=== PATIENT | female | born 1955 | race Caucasian/White ===

== ENCOUNTER 2020-05-22 01:14 | Outpatient (CLI) | payer MEDICARE, SELFPAY ==
[2020-05-22 20:15] LABS: SARS-CoV-2 RNA PCR Negative
== END 2020-05-22 01:15 | disposition home or self-care (01) ==
LOC: ANHCOVIDDT 01:14
PROVIDERS: PCP Internal Medicine Infectious Disease; Visit Provider Internal Medicine Gastroenterology
DX: Z01.812 Encounter for preprocedural laboratory examination (principal); Z11.59 Encounter for screening for other viral diseases
CPT/HCPCS: 87635; C9803; U0003

== ENCOUNTER 2020-05-25 01:38 | Day surgery (SDC) | payer MEDICARE, SELFPAY ==
[2020-05-19 11:14] VITALS: BMI 22.4
[2020-05-25 06:42] VITALS: BP 171/73; PULSE 86; RESP 16; TEMP 36.7; O2SAT 98
[2020-05-25] MEDS: LACTATED RINGERS 1,000 ML 150 ML IV CONT (06:49)
--- NOTE | 2020-05-25 07:08 | WPDANESEPPF ---
Anes - Initial Pre Proc Eval Procedure: Operation Date: 05/25/20 08:00 Proposed Procedures p Screening Colonoscopy - Juan Best MD Date/Time: 05/25/20 07:08 Surgeon: Juan Best MD Pre Op Diagnosis: Neoplasm Screening Patient Data Age: 65 Gender: F Height: 5 ft 2 in Weight: 54.5 kg Last Vital Signs Temp 36.7 C 05/25/20 06:42 Pulse 86 05/25/20 06:42 Resp 16 05/25/20 06:42 BP 171/73 H 05/25/20 06:42 Pulse Ox 98 05/25/20 06:42 Allergies Allergy/AdvReac Type Severity Reaction Status Date / Time codeine Allergy Mild Nausea and Unverified 05/25/20 06:40 Vomiting Home Medications Medication Instructions Recorded Confirmed Type fluticasone propionate 2 spray INTRANASAL BID 05/19/20 05/19/20 History hydrochlorothiazide 25 mg PO DAILY 05/19/20 05/25/20 History Patient hx anesthesia problems: none Family hx anesthesia problems: none [facility] Past Medical History Medical History (Updated 05/25/20 @ 07:11 by Ton Cueva MD) HTN (hypertension) Hyperlipidemia Social History Social History Smoking packs per day: 1.5 Smoking cigarettes per day: 30.0 Smoking status: Former smoker Tobacco type: cigarettes Alcohol intake: current Drinks per week: 15 Substance use: former Substance use type: marijuana and crack/cocaine Living arrangements: with family Spiritual care concerns: No Anes - Eval Final PreProcedure Day of Procedure 05/25/20 07:08 Patient weight: normal Heart: regular rate and rhythm Lungs: clear to auscultation Airway: Mallampati scale class II Neurological: alert and oriented Last oral intake: >/= 8 hours ASA classification: III Emergent: no Anesthetic plan: proceed Anesthesia type and monitoring: general GIVS and standard monitoring Informed Consent: The patient's anesthetic plan and its attendant risks and benefits were discussed with the patient/family/POA. Questions were solicited and answers provided to the satisfaction of the patient/family/POA.
--- NOTE | 2020-05-25 07:48 | WPDGICN ---
Assessment and Plan Assessment and plan (1) Encounter for screening colonoscopy: Code(s): Z12.11 - Encounter for screening for malignant neoplasm of colon Status: Acute Assessment and Plan: Patient presents for screening colonoscopy is been at least 10 years since last exam. She has no specific symptoms. Appears to be at average risk for colon polyps. Colonoscopy report follow separately. GI Consult Note Consult date/time: 05/25/20 07:48 HPI: Ambar Sears is a 65 year old female Seen in evaluation at the request of Dr Benavides. patient presents for screening colonoscopy. Patient's current weight appetite bowel movements are normal. Patient denies abdominal pain. He has had no bleeding. Family history is noncontributory. [facility] Past Medical History Medical History (Updated 05/25/20 @ 07:49 by Juan Best MD) HTN (hypertension) Hyperlipidemia Social History Social History Smoking packs per day: 1.5 Smoking cigarettes per day: 30.0 Smoking status: Former smoker Tobacco type: cigarettes Alcohol intake: current Drinks per week: 15 Substance use: former Substance use type: marijuana and crack/cocaine Living arrangements: with family Spiritual care concerns: No Meds Home Medications and Allergies Home Medications Medication Instructions Recorded Confirmed Type fluticasone propionate 2 spray INTRANASAL BID 05/19/20 05/19/20 History hydrochlorothiazide 25 mg PO DAILY 05/19/20 05/25/20 History Allergies Allergy/AdvReac Type Severity Reaction Status Date / Time codeine Allergy Mild Nausea and Unverified 05/25/20 06:40 Vomiting Vital Signs Vital Signs - 24 hr 05/25/20 06:42 Temperature 98.0 F Pulse Rate 86 Respiratory Rate 16 Blood Pressure 171/73 H Pulse Oximetry 98 Exam Narrative: Exam Narrative: Physical exam reveals patient to be alert. Vital signs stable. HEENT exam unremarkable. Lungs are clear to auscultation and percussion. Heart is without murmur or extra sounds. Abdominal exam bowel sounds are present soft nontender with no organomegaly. Digital external rectal exam is normal.
[2020-05-25 08:14] VITALS: BP 132/68; PULSE 83; RESP 18; O2SAT 100
[2020-05-25 08:23] VITALS: BP 128/111; PULSE 88; RESP 22; O2SAT 100
[2020-05-25 08:34] VITALS: BP 158/96; PULSE 82; RESP 16; O2SAT 100
== END 2020-05-25 08:57 | disposition home or self-care (01) ==
PROVIDERS: PCP Internal Medicine Infectious Disease; Visit Provider Internal Medicine Gastroenterology
PROC: 0DJD8ZZ Inspection of Lower Intestinal Tract, Via Natural or Artificial Opening Endoscopic (ICD-10-PCS; CPT 45378; principal; 2020-05-25 08:00)
DX: Z12.11 Encounter for screening for malignant neoplasm of colon (principal); E78.5 Hyperlipidemia, unspecified; I10 Essential (primary) hypertension; Z87.891 Personal history of nicotine dependence; F12.10 Cannabis abuse, uncomplicated
CPT/HCPCS: G0121; J2704; J7120

== ENCOUNTER 2020-05-26 07:35 | Outpatient (CLI) | payer MEDICARE, SELFPAY ==
--- NOTE | ~2020-05-26 | CT_ITS ---
EXAMINATION: CT lung screening DATE: 05/26/2020 08:31 INDICATION: History of tobacco dependence. Lung cancer screening. TECHNIQUE: Computed tomography (CT) of the chest was performed without intravenous contrast. The dose -length product was 58.59 mGy-cm. Automated exposure control and iterative reconstruction technique w ere employed. COMPARISON: Chest x-ray dated 12/06/2005 FINDINGS: Mild atherosclerosis. No significant pleural or pericardial effusion. There are calcified m ediastinal and hilar lymph nodes as well as right lower lobe parenchymal nodule consistent with chron ic granulomatous disease. No thoracic lymphadenopathy. Calcifications of the pancreas are consistent with chronic pancreatitis. There is emphysema. 2 mm left upper lobe nodule, image 43. No endobronchial lesion. Mild thoracic spo ndylosis. No acute osseous abnormality. IMPRESSION: 1. Lung-RADS category 2: Benign appearance or behavior. Continue annual screening with noncontrast lo w-dose chest CT in 12 months. Reviewed, dictated and finalized at location A. R BEAM MACHINE OPERATOR IMPRESSION: 1. Lung-RADS category 2: Benign appearance or behavior. Continue annual screeni ng with noncontrast low-dose chest CT in 12 months.
--- NOTE | ~2020-05-26 | MM_ITS ---
EXAMINATION: MM screening alyssa BI w mj HISTORY: Screening mammogram TECHNIQUE: Craniocaudal and mediolateral oblique 3-D tomosynthesis images were obtained and synthetic 2-D images were generated. CAD analysis was submitted and interpreted. COMPARISON: 01/18/2006 bilateral breast ultrasound examination BREAST PARENCHYMAL COMPOSITION: There are scattered areas of fibroglandular density. FINDINGS: There is no evidence of suspicious mass, calcification, or architectural distortion to sugg est malignancy in either breast. There has been no suspicious interval change. IMPRESSION: 1. No mammographic evidence of malignancy. 2. Recommend routine screening mammography in one year. BI-RADS Category 1: Negative Reviewed, dictated and finalized at location B. E FACILITY TECHNICIAN
--- NOTE | ~2020-05-26 | DEXA_ITS ---
Bone Density Report Name: Ambar Sears Age: 65 Sex: Female Ethnicity: White Date of : 1955 Indication: postmenopausal; prior fracture; Referring Provider: ANTONETTE, JAYASHREE Study: Bone densitometry was performed. Exam Date: May 26, 2020 Accession number: [id number] Bone Density: Region BMD T-score Z-score Classification AP Spine (L1-L4) 0.918 -1.2 0.6 Osteopenia Femoral Neck (Left) 0.581 -2.4 -0.9 Osteopenia Total Hip (Left) 0.657 -2.3 -1.1 Osteopenia Total Hip Bilateral Avg 0.656 -2.4 -1.1 Osteopenia Femoral Neck (Right) 0.538 -2.8 -1.3 Osteoporosis Total Hip (Right) 0.653 -2.4 -1.1 Osteopenia World Health Organization criteria for BMD impression classify patients as: Normal (T-score at or above -1.0), Osteopenia (T-score between -1.0 and -2.5), or Osteoporosis (T-score at or below -2.5). 10-year Fracture Risk: FRAX not reported because: Some T-score for Spine Total or Hip Total or Femoral Neck at or below -2.5 Clinical Information Provided by Patient: Has had a low trauma fracture Patient maximum height was 62 Menopause Age: 55 Does not regularly consume dairy products Drinks caffeinated beverages Onset of menses at age 10 Number of children 2 Impression: The patient has established osteoporosis, based on the Right Femoral Neck T-score and the existence of a prior fracture. The patient has risk factors, including: previous fracture. Discussion: HIGH RISK OF FRACTURE. BONE DENSITY IS UNDESIRABLY LOW AT ONE OR MORE SKELETAL SITES, CONSISTENT WITH POSTMENOPAUSAL OSTEOPOROSIS. This patient's lowest T-score, in a patient who has previously fractured, meets the World Health Organization's (WHO) criteria for severe osteoporosis. In untreated patients, the risk of osteoporotic fracture increases approximately two-fold for each 1.0 SD decrease in T-score. Low bone density is not the only risk factor for fracture; also consider factors such as patient's age, frailty or poor health, risk of falling, risk of injury, previous osteoporotic fracture, family history of osteoporosis, cigarette smoking, low body weight, etc. Not everyone with low bone mineral density has osteoporosis; osteomalacia and other metabolic bone disorders should also be considered. Patients who have osteoporosis should be evaluated for specific diseases and conditions (secondary causes) that may cause or contribute to bone loss. The [place] [employer]ocrinologists (AACE) and National Osteoporosis Foundation (NOF) recommend pharmacologic intervention for all postmenopausal women whose T-score is in this range. The patient should follow a healthful lifestyle (good nutrition with adequate calcium and vitamin D, and appropriate weight-bearing exercise). Follow-Up: Consider a repeat BMD and Vertebral Fracture Assessment (VFA) exa
== END 2020-05-26 07:36 | disposition home or self-care (01) ==
LOC: ANHIMG 07:43
PROVIDERS: PCP Internal Medicine Infectious Disease; Visit Provider Internal Medicine Infectious Disease
DX: Z12.2 Encounter for screening for malignant neoplasm of respiratory organs (principal); Z12.31 Encounter for screening mammogram for malignant neoplasm of breast; Z13.820 Encounter for screening for osteoporosis; Z87.891 Personal history of nicotine dependence; M81.0 Age-related osteoporosis without current pathological fracture; M85.852 Other specified disorders of bone density and structure, left thigh; M85.851 Other specified disorders of bone density and structure, right thigh
CPT/HCPCS: 77063; 77067; 77080; G0297

== ENCOUNTER 2021-05-30 09:38 | Outpatient (CLI) | payer MEDICARE, SELFPAY ==
--- NOTE | ~2021-05-30 | MM_ITS ---
EXAMINATION: MM screening alyssa BI w mj HISTORY: Screening mammogram TECHNIQUE: Craniocaudal and mediolateral oblique 3-D tomosynthesis images were obtained and synthetic 2-D images were generated. CAD analysis was submitted and interpreted. COMPARISON: 05/26/2020 BREAST PARENCHYMAL COMPOSITION: There are scattered areas of fibroglandular density. FINDINGS: There is no evidence of suspicious mass, calcification, or architectural distortion to sugg est malignancy in either breast. There has been no suspicious interval change. IMPRESSION: 1. No mammographic evidence of malignancy. 2. Recommend routine screening mammography in one year. BI-RADS Category 1: Negative Reviewed, dictated and finalized at location A. E GROWER
== END 2021-05-30 09:39 | disposition home or self-care (01) ==
LOC: ANHIMG 09:41
PROVIDERS: PCP Internal Medicine Infectious Disease; Visit Provider Internal Medicine Infectious Disease
DX: Z12.31 Encounter for screening mammogram for malignant neoplasm of breast (principal)
CPT/HCPCS: 77063; 77067

== ENCOUNTER 2021-09-02 10:59 | Outpatient (CLI) | payer MEDICARE, SELFPAY ==
--- NOTE | ~2021-09-02 | CT_ITS ---
EXAMINATION: CT lung screening DATE: 09/02/2021 11:20 INDICATION: Personal history of nicotine dependence, prior smoker with 40 pack year history TECHNIQUE: Computed tomography (CT) of the chest was performed without intravenous contrast. The dose -length product (DLP) was 58.11 mGy-cm. Automated exposure control and iterative reconstruction techn [employer] were employed. COMPARISON: 05/26/2020 FINDINGS: There is mild emphysema. There is a 2 mm nodule of the left upper lobe. No new or suspiciou s pulmonary nodules are identified. The lungs are free of acute opacities. There is no pleural effusi on or pneumothorax. No pathologically enlarged thoracic lymph nodes are identified. The heart size is normal. Calcified coronary artery atherosclerosis is noted. There is moderate thoracic spondylosis. IMPRESSION: 1. Lung-RADS category 2: Benign appearance or behavior. Continue annual screening with noncontrast lo w-dose chest CT in 12 months. Reviewed, dictated and finalized at location B. IMPRESSION: 1. Lung-RADS category 2: Benign appearance or behavior. Continue annual screeni ng with noncontrast low-dose chest CT in 12 months.
== END 2021-09-02 11:00 | disposition home or self-care (01) ==
PROVIDERS: PCP Internal Medicine Infectious Disease; Visit Provider Internal Medicine Infectious Disease
DX: Z12.2 Encounter for screening for malignant neoplasm of respiratory organs (principal); Z87.891 Personal history of nicotine dependence
CPT/HCPCS: 71271